=== PATIENT | male | born 1990 | race Caucasian/White ===

== ENCOUNTER 2016-09-20 04:36 | Emergency (ER) | payer SELFPAY ==
[~2016-09-20] VITALS: Ht 180.3 cm; Wt 65.8 kg
[2016-09-20 04:45] VITALS: BP 154/99
[2016-09-20] MEDS ORDERED: DIPHTH,PERTUSS(ACELL),TET TOX 0.5 ML DISP.SYRIN. VAX IM ONE (05:30)
[2016-09-20] MEDS ORDERED: IBUPROFEN 600 MG TABLET. PO ONE (05:30)
[2016-09-20] MEDS ORDERED: CEPHALEXIN 250 MG CAPSULE. PO ONE (05:30)
[2016-09-20] MEDS ORDERED: CEPH-264 PO (05:42)
[2016-09-20] MEDS ORDERED: IBUP-1007 PO (05:42)
[2016-09-20] MEDS ORDERED: TRAM-48 PO (05:42)
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
== END 2016-09-20 06:30 | disposition home or self-care (01) ==
LOC: ER 04:36
DX: S62.634B Displaced fracture of distal phalanx of right ring finger, initial encounter for open fracture (principal); Z88.0 Allergy status to penicillin; W34.00XA Accidental discharge from unspecified firearms or gun, initial encounter; Y93.89 Activity, other specified; Y99.8 Other external cause status; Y92.89 Other specified places as the place of occurrence of the external cause
CPT/HCPCS: 29125; 29130; 73140; 90471; 90715; 99284-25